=== PATIENT | female | born 1995 | race Two or more races ===

== ENCOUNTER 2024-10-27 11:31 | Observation (INO) | payer MEDICAID, SELFPAY ==
[2024-10-27 11:35] VITALS: BP 90/62; PULSE 98; RESP 16; TEMP 36.6; O2SAT 99; BMI 28.2
[2024-10-27 11:39] VITALS: BP 89/56; PULSE 90
[2024-10-27 11:40] VITALS: BP 90/62; PULSE 102
[2024-10-27] MEDS: BETAMET ACET/BETAMET NA PH (Celestone) 6 MG/ML VIAL 12 MG IM (12:07)
== END 2024-10-27 12:30 | disposition home or self-care (01) ==
PROVIDERS: Admitting Provider Specialist; Visit Provider Specialist
DX: Z34.83 Encounter for supervision of other normal pregnancy, third trimester (principal); Z3A.33 33 weeks gestation of pregnancy
CPT/HCPCS: 59025; 59899; 96372; J0702

== ENCOUNTER 2024-10-28 12:03 | Outpatient (CLI) | payer MEDICAID, SELFPAY ==
[2024-10-28 12:15] VITALS: BMI 25.8
[2024-10-28 12:22] VITALS: BP 90/49; PULSE 70
[2024-10-28] MEDS: BETAMET ACET/BETAMET NA PH (Celestone) 6 MG/ML VIAL 12 MG IM (12:52)
== END 2024-10-28 13:00 | disposition home or self-care (01) ==
LOC: S4S1 12:04 → S4SX 12:48
PROVIDERS: Referring Provider Specialist; Visit Provider Specialist
DX: Z34.83 Encounter for supervision of other normal pregnancy, third trimester (principal); Z36.89 Encounter for other specified antenatal screening; Z3A.34 34 weeks gestation of pregnancy
CPT/HCPCS: 59025; 96372; J0702

== ENCOUNTER 2024-12-04 08:15 | Inpatient (IN) | payer MEDICAID, SELFPAY ==
[2024-12-04] VITALS (15 sets, daily range): BP systolic 98–125; BP diastolic 54–76; PULSE 60–93; RESP 17–18; TEMP 36.4–37; BMI 26.9
--- NOTE | 2024-12-04 09:20 | PD.LDHP ---
Documentation for date of: 12/04/24 OB Labor/Induct. HPI History of Present Illness History of present illness: H and P dictated on STAT line #9 number [id number] Meds Home Medications and Allergies Home Medications ?Medication ?Instructions ?Recorded ?Confirmed ?Type vits no.130-ferrous fum See Rx Instructions .Route .COMPLEX 12/04/24 12/04/24 History 27 mg iron-folic acid 800 mcg tablet ( Vitamin) ursodiol 300 mg capsule 300 mg PO 2XD 12/04/24 12/04/24 History Allergies Allergy/AdvReac Type Severity Reaction Status Date / Time No Known Allergies Allergy Verified 12/04/24 08:48 OB Exam Physical Exam Vital signs: Temp Pulse Resp BP 97.5 F 93 18 120/73 12/04/24 08:20 12/04/24 08:52 12/04/24 08:20 12/04/24 08:52
[2024-12-04] MEDS: RINGERS LACTATED 1000 ML 1,000 ML 100 ML IV (09:30)
[2024-12-04] MEDS: DINOPROSTONE 10 MG VAG.SUPP VAGINAL (09:59)
[2024-12-04 10:11] LABS: Basophils % (Auto) 1 % (0-2.5); Eosinophils # (Auto) 0.1 Thou/mm3 (0.0-0.5); Eosinophils % (Auto) 1 % (0-10); Hematocrit 33.3 % (36.0-46.0); Hemoglobin 11.2 g/dL (12.0-16.0); Immature Granulocytes % (Auto) 1 % (0-0); Immature Granulocytes Auto 0.11 Thou/mm3 (0.00-0.00); Lymphocytes # (Auto) 1.9 Thou/mm3 (1.0-4.8); Lymphocytes % (Auto) 23 % (10-50); Mean Corpuscular HGB Conc 33.6 g/dl (31.0-37.0); Mean Corpuscular Hemoglobin 29.7 pg (25.0-35.0); Mean Corpuscular Volume 88 fL (80-100); Monocytes # (Auto) 0.5 Thou/mm3 (0.0-0.8); Monocytes % (Auto) 6 % (0-12); Neutrophils # (Auto) 5.6 Thou/mm3 (1.8-7.7); Neutrophils % (Auto) 69 % (37-80); Nucleated Red Blood Cell % 0 /100 WBC (0); Platelet Count 173 Thou/mm3 (140-440); RDW Standard Deviation 43.4 fL (36.4-46.3); Red Blood Count 3.77 Miln/mm3 (4.00-5.20); White Blood Count 8.2 Thou/mm3 (3.6-11.0)
[2024-12-04 10:46] LABS: Syphilis Nonreactive (Nonreactive)
[2024-12-04] MEDS: fentaNYL CIT INJ 50 mCg/ML AMP 2ML 100 MCG IV (23:40)
[2024-12-05] VITALS (130 sets, daily range): BP systolic 77–165; BP diastolic 44–112; PULSE 56–154; RESP 18; TEMP 36.4–36.7; O2SAT 84–100
[2024-12-05] MEDS: fentaNYL CIT INJ 50 mCg/ML AMP 2ML 100 MCG IV ×2 (01:29→04:11)
[2024-12-05] MEDS: MISOPROSTOL 50 mCg TABLET PO (02:30)
[2024-12-05] MEDS: Ampicillin Inj 2,000 MG in SODIUM CHLORIDE 0.9% (P) 100 ML 200 MG IV (04:40)
--- NOTE | 2024-12-05 06:45 | PD.LDPN ---
Documentation for date of: 12/05/24 OB Labor Progress Note Pain Control Comments: Epidural Pelvic Exam Comments: See RN notes Contractions Contraction frequency: irregular Status status: Category l Assessment and Plan Comments: Anticipate
--- NOTE | 2024-12-05 07:14 | ESHP_ITS ---
RE: MAGDY SAM : 1995 DATE OF ADMISSION: 12/04/2024 HISTORY OF PRESENT ILLNESS: This is a 29-year-old 2 para 1-0-0-1 with a due date of 12/03/2024 with intrauterine at 40 weeks and 1 day on 12/04/2024 who presents for induction of labor for cholestasis of . The patient's care was complicated by cholestasis, which developed at 36 weeks' gestation. She has been on ursodiol and her itching has been controlled. Her recent bile acid level was 9.1. The patient's care was complicated by threatened labor. She had a positive fibronectin on 10/25/2024. She received betamethasone on 10/27/2024 and 10/28/2024. She has had serial ultrasounds throughout her , which have shown adequate interval growth. Her most recent ultrasound on 10/20/2024 showed growth at the 19th percentile and normal anatomy. The patient had a subsequent ultrasound on 11/21/2024, which showed estimated weight of 2986 g consistent with 6 pounds 9 ounces. The patient's antepartum testing has been reassuring. Her liver function tests have been in the normal range. ALLERGIES: NO KNOWN DRUG ALLERGIES. MEDICATIONS: 1. Ursodiol 300 mg 1 p.o. b.i.d. 2. Benadryl 25 mg one p.o. q. 6 hours 3. Ferrous sulfate 325 mg one p.o. daily 4. Baby aspirin 81 mg one p.o. daily 5. vitamin 1 p.o. daily SOCIAL HISTORY: She denies any alcohol, drug use or smoking. PAST MEDICAL HISTORY: Cholestasis of , iron deficiency anemia, group B strep, vaginal colonization, marijuana use in the first trimester, mild systolic hypertension versus white coat hypertension, chlamydia cervicitis. FAMILY HISTORY: Down syndrome, congenital hydrocephalus, paternal grandfather with prostate cancer, diabetes. OBSTETRIC HISTORY: In 2016, a 40 week normal vaginal delivery, 6 pound 9 ounce male. No complications. PAST SURGICAL HISTORY: Denies. REVIEW OF SYSTEMS: She denies any headache, change in vision or right upper quadrant pain. She denies any chest pain, palpitations, shortness of breath or lower extremity pain. PHYSICAL EXAMINATION: VITAL SIGNS: Blood pressure 101/64, heart rate 88, respirations 18, temperature 98.6. HEENT: Oropharynx and sclerae are clear. LUNGS: Clear to auscultation bilaterally. HEART: Regular rate and rhythm. ABDOMEN: Gravid consistent with estimated weight of 7.5 pounds. PELVIC: See RN notes. EXTREMITIES: Nontender. SKIN: No gross or lesion. NEUROLOGIC: No focal deficits. ASSESSMENT AND PLAN: Intrauterine at 40 weeks and 1 day on 12/04/2024, cholestasis of , induction of labor, anticipated spontaneous vaginal delivery. Informed consent was obtained. The patient is made aware of the risks, complications, alternatives, and benefits of the proposed procedure and she agrees. DT: 16:42:43 TT: 18:34:00 Ref: [id number] - TID: [id number] MTDD
[2024-12-05] MEDS: Ampicillin Inj 1,000 MG in SODIUM CHLORIDE 0.9% (P) 50 ML 50 MG IV (08:40)
[2024-12-05] MEDS: OXYTOCIN in NS 20 units 20 UNIT/1,000 ML BAG 125 UNIT IV (10:40)
[2024-12-05] MEDS: BENZO/LANO/ALOE (Dermoplast) 60 GM CAN 1 SPRAY TOP (10:57)
--- NOTE | 2024-12-05 11:17 | PD.LDDELS ---
Data (Nicholas) Data Hx Section: No : 2 Para: 1 Term: 1 : 0 : 0 Delivery Data (Nicholas) Labor Data ROM Date: 12/05/24 ROM Time: 10:20 Rupture Type: AROM Amniotic Fluid: Clear Delivery Data EDC: 12/09/24 EDC calculated by:: LMP/early US confirmation Labor Onset Stage 1 Date: 12/05/24 Labor Onset Stage 1 Time: 05:00 Labor Onset Stage 2 Date: 12/05/24 Labor Onset Stage 2 Time: 10:28 Delivery Date: 12/05/24 Delivery Time: 10:35 Gestational age (weeks): 39 Gestational age (days): 2 Placenta Delivery Date: 12/05/24 Placenta Delivery Time: 10:40 Delivered by: Rubén Disla Delivery nurse: Stefani Barber Other staff at delivery: Nursery Nurse Other staff at delivery: Julieta Schroeder Delivery Method Delivery: Vaginal Delivery Type: Spontaneous Presentation: Vertex Position: OA Anesthesia Type Primary Anesthesia: Epidural Lacerations #1: Labial: 1st degree bilateral Perineal repair Sutures used for repair: 3.0 Chromic EBL Estimated blood loss (ml): 200 Umbilical Cord Nuchal Cord: x1 Additional Procedures None Complications Complications: None [place] Data (Nicholas) [place] Data Gender: Male Weight Grams: 2710 1 Minute Total: 9 5 Minute Total: 9
--- NOTE | 2024-12-05 11:18 | ESDS_ITS ---
DS: Providers Provider Date of admission: 12/04/24 08:15 Primary care physician: Mohinder Guallpa MD Admitting Provider: Rubén Disla MD Attending Provider on Admission: Rubén Disla MD Consults: 12/05/24 11:10 Referral Routine Comment: Attending Provider on DC: Rubén Disla MD Discharging Provider: Rubén Disla MD DS: Diagnosis Problem List Completed Was Problem List Reviewed/Reconciled?: Yes Summary/Hosp Course Brief History: H and P dictated on STAT line #9 number [id number] Time Spent with Patient Time attestation: Total time spent providing and/or coordinating discharge services: Exam Vital Signs Temp Pulse Resp BP Pulse Ox 98.1 F 76 18 138/61 H 95 12/05/24 07:11 12/05/24 11:04 12/05/24 07:11 12/05/24 11:04 12/05/24 10:33 Discharge Plan Plan Patient Disposition: HOME (Self Care) Patient condition on transfer: Stable Prescriptions/Referrals Prescriptions/Med Rec: New ibuprofen 600 mg tablet 600 mg PO Q6H PRN (Reason: pain) Qty: 30 0RF hydrocodone-acetaminophen 5-325 mg tablet 1 tab PO Q6H MDD 4 PRN (Reason: pain) Qty: 20 0RF Continued Vitamin 27 mg iron- 800 mcg tablet See Rx Instructions .ROUTE .COMPLEX Patient Comments: TAKE ONE TABLET BY MOUTH EVERY DAY VITAMIN Rx Instructions: as instructed No Action ursodiol 300 mg capsule 300 mg PO 2XD Patient Comments: TAKE 1 CAPSULE BY MOUTH TWICE A DAY Referrals: Mohinder Guallpa MD [Primary Care Provider] - Patient/Caregiver Discharge Instructions Discharge Activity: activity as tolerated Other Discharge Activity Instructions:: Follow up office 6 weeks. Print Language: Frisian Stand Alone Forms: Luz Maria Award Info., Patient Portal Info Letter Discharge Order Discharge Orders: Discharge (Routine); Ordered 12/06/24 Ordered By: Rubén Disla Planned Discharge Date 12/06/24
[2024-12-05 17:43] LABS: Basophils % (Auto) 0 % (0-2.5); Eosinophils % (Auto) 0 % (0-10); Hematocrit 29.7 % (36.0-46.0); Hemoglobin 9.9 g/dL (12.0-16.0); Immature Granulocytes % (Auto) 1 % (0-0); Lymphocytes # (Auto) 1.5 Thou/mm3 (1.0-4.8); Lymphocytes % (Auto) 12 % (10-50); Mean Corpuscular HGB Conc 33.3 g/dl (31.0-37.0); Mean Corpuscular Hemoglobin 29.6 pg (25.0-35.0); Mean Corpuscular Volume 89 fL (80-100); Monocytes # (Auto) 0.9 Thou/mm3 (0.0-0.8); Monocytes % (Auto) 7 % (0-12); Neutrophils # (Auto) 10.1 Thou/mm3 (1.8-7.7); Neutrophils % (Auto) 80 % (37-80); Nucleated Red Blood Cell % 0 /100 WBC (0); Platelet Count 158 Thou/mm3 (140-440); RDW Standard Deviation 44.2 fL (36.4-46.3); Red Blood Count 3.35 Miln/mm3 (4.00-5.20); White Blood Count 12.7 Thou/mm3 (3.6-11.0)
[2024-12-05] MEDS: IBUPROFEN TAB 400 MG TABLET 800 MG PO (18:49)
[2024-12-05] MEDS: HYDROcodone/APAP 5/325 TABLET 1 TAB PO (22:24)
--- NOTE | 2024-12-05 23:43 | PC.NURSE ---
Entered pt room with baby @ 2315. Received pt crying in pain saying that she feels like she's having pain in between her hip bones, pain medication (Norcox1 given @ 2200) did not help. Fundal massage done, only one gush noted, no clots came out; pt was firm, midline and at umbilicus. Asked assistance from charge to double check on pt. MIKKI Mejia came to help reassess pt. Per pt, the cramping feels more like contractions, rating the pain a 10 out of 10. VS as follows: B/P=146/87, Temp=97.6, HR=98, O2=96%. MIKKI Mejia performed another fundal massage, small trickle noted. Dr. Disla called to inform of situation, per , give Toradol x1 for breakthrough pain and keep pt comfortable.
[2024-12-06] MEDS: KETOROLAC INJ 30 MG/ML VIAL IVP (00:06)
[2024-12-06 00:45] VITALS: BP 94/61; PULSE 65; RESP 16; TEMP 36.5; O2SAT 97
--- NOTE | 2024-12-06 08:15 | PC.NURSE ---
[facility] 0[facility] 0700.
[2024-12-06] MEDS: IBUPROFEN TAB 400 MG TABLET 800 MG PO (08:24)
--- NOTE | 2024-12-06 08:52 | ESPR_ITS ---
RE: MGADY SAM : 1995 DATE OF SERVICE: 12/06/2024 SUBJECTIVE: day #1, the patient denies any problem or complaints. Yesterday, she had some menstrual type cramping with the Pitocin. This has resolved. She denies any excessive vaginal bleeding. She denies any dizziness or lightheadedness. OBJECTIVE: Vital Signs: Blood pressure 94/61, heart rate 65, respirations 16, temperature is 97.7, pulse oximetry is 97% on room air. Lungs: Clear to auscultation bilaterally. Heart: Regular rate and rhythm. Abdomen: Fundus is firm. Extremities: Nontender. LABORATORY DATA: Hemoglobin predelivery is 11.2, postdelivery is 9.9. ASSESSMENT: day #1, status post spontaneous vaginal delivery. PLAN: Discharge home. Discharge instructions were given. Follow up in the office in 6 weeks. DT: 07:48:04 TT: 08:50:00 Ref: [id number] - TID: [id number]
[2024-12-06 09:18] VITALS: BP 96/59; PULSE 63; RESP 17; TEMP 36.5; O2SAT 97
[2024-12-06] MEDS: HYDROcodone/APAP 5/325 TABLET 2 TAB PO (10:44)
[2024-12-06 16:00] VITALS: BP 104/62; PULSE 67; RESP 16; TEMP 36.8; O2SAT 97
== END 2024-12-06 16:40 | disposition home or self-care (01) | DRG 560 ==
LOC: S4SX 12-05 11:11 → S4NX 12-05 12:55
PROVIDERS: Admitting Provider Specialist; PCP Family Medicine; Visit Provider Specialist
DX: O26.643 Intrahepatic cholestasis of pregnancy, third trimester (principal); E78.79 Other disorders of bile acid and cholesterol metabolism; K76.89 Other specified diseases of liver; O48.0 Post-term pregnancy; O69.81X0 Labor and delivery complicated by cord around neck, without compression, not applicable or unspecified; O70.0 First degree perineal laceration during delivery; Z37.0 Single live birth; Z3A.40 40 weeks gestation of pregnancy
CPT/HCPCS: 36415; 59409; 85025; 86780; 86850; 86900; 86901; 94762; J0290; J1885; J2590; J2795; J3010; J7050; J7120; A9270